=== PATIENT | female | born 1950 | race Caucasian/White ===

== ENCOUNTER 2020-07-17 09:48 | Outpatient (CLI) | payer MEDICARE, OTHER, SELFPAY | END 2020-07-17 09:49 | disposition home or self-care (01) | LOC: ANHCOVIDVC 09:48 | DX: Z23 Encounter for immunization (principal) | CPT/HCPCS: 0001A; 91300 ==

== ENCOUNTER 2020-08-07 09:44 | Outpatient (CLI) | payer MEDICARE, OTHER, SELFPAY | END 2020-08-07 09:45 | disposition home or self-care (01) | LOC: ANHCOVIDVC 09:45 | DX: Z23 Encounter for immunization (principal) | CPT/HCPCS: 0002A; 91300 ==